=== PATIENT | male | born 1945 | race Caucasian/White ===

== ENCOUNTER 2023-05-15 05:42 | Emergency (ER) | payer OTHER ==
[~2023-05-15] VITALS: Ht 165.1 cm; Wt 72.6 kg
[2023-05-15 09:15] VITALS: BP 116/57
[2023-05-15] MEDS ORDERED: OXAYDO5 M1 PO (09:25)
== END 2023-05-15 09:40 | disposition home or self-care (01) ==
LOC: ER 05:42
DX: G89.18 Other acute postprocedural pain (principal); R10.2 Pelvic and perineal pain; N32.89 Other specified disorders of bladder; Z88.0 Allergy status to penicillin; Z87.891 Personal history of nicotine dependence; Z79.899 Other long term (current) drug therapy; Z79.82 Long term (current) use of aspirin; I25.2 Old myocardial infarction
CPT/HCPCS: 51798; 99284; A9270

== ENCOUNTER 2025-02-15 10:10 | Day surgery (SDC) | payer OTHER ==
[~2025-02-15] VITALS: Ht 165.1 cm; Wt 69.9 kg
[~2025-02-15 10:10] MED LIST: Balanced Salt Epinephrine Irrigation Solution 500 mL IR SCH; Lidocaine HCl/Pf 1% 5 ML VIAL XX SCH; Moxifloxacin HCL 0.5 MG/0.1 ML 0.4MLSYR RIGHTEYE SCH; OXAYDO5 M1 PO; PHENYLEPHRINE\\TROPICAMIDE\\TETRACAINE OPHTHALMIC DILATING SOLN RIGHTEYE PRN; Povidone-Iodine 450 DROP/30 ML Solution ONE; Povidone-Iodine 450 DROP/30 ML Solution RIGHTEYE SCH; Tetracaine HCl/Pf 0.5% Opth Soln 4 ml ONE; Triamcinolone Inj Susp 40 MG / ML 1ML Vial INJ SCH; Triamcinolone Inj Susp 40 MG / ML 1ML Vial ONE
[2025-02-15] MEDS ORDERED: NS 500 ML IV ONE (11:18)
[2025-02-15] MEDS ORDERED: LOSA50 PO (11:31)
[2025-02-15] MEDS ORDERED: LEVSOD25 PO (11:32)
[2025-02-15] MEDS ORDERED: TAMS.4ER (11:34)
[2025-02-15] MEDS ORDERED: METOPROLOL SUCC25 MG PO (11:34)
[2025-02-15] MEDS ORDERED: ZOCOR20 MG PO (11:36)
[2025-02-15] MEDS ORDERED: ELIQUIS2.5 MG PO (11:36)
[2025-02-15] MEDS ORDERED: EZET10 (11:37)
[2025-02-15] MEDS ORDERED: SITA50T2 PO (11:41)
[2025-02-15] MEDS ORDERED: SYNJARDY XR 251 EAC1 (11:42)
--- NOTE | 2025-02-15 11:48 | NUR ---
02/15/25 1148 Andreina Schumacher TETRACAINE: 1118 PLEGETT: 1120
[2025-02-15] MEDS ORDERED: Midazolam HCl 1MG / ML 2ML Vial ONE (12:09)
[2025-02-15] MEDS ORDERED: FentaNYL Citrate 50 MCG/ML 2 ML Injection ONE (12:09)
[2025-02-15 12:38] VITALS: BP 131/70
== END 2025-02-15 12:47 | disposition home or self-care (01) ==
LOC: ORSCSDS 10:10
PROVIDERS: Ophthalmology
PROC: 08RJ3JZ Replacement of Right Lens with Synthetic Substitute, Percutaneous Approach (ICD-10-PCS; principal; 2025-02-15 12:30)
DX: E11.36 Type 2 diabetes mellitus with diabetic cataract (principal); H25.813 Combined forms of age-related cataract, bilateral; H52.201 Unspecified astigmatism, right eye; H40.023 Open angle with borderline findings, high risk, bilateral; I25.2 Old myocardial infarction; I10 Essential (primary) hypertension; G47.33 Obstructive sleep apnea (adult) (pediatric); Z87.891 Personal history of nicotine dependence; Z79.899 Other long term (current) drug therapy
CPT/HCPCS: 82947; J2250; J3010; J3301; V2632

== ENCOUNTER 2025-02-22 12:19 | Day surgery (SDC) | payer OTHER ==
[~2025-02-22] VITALS: Ht 165.1 cm; Wt 69.8 kg
[~2025-02-22 12:19] MED LIST changes: +ELIQUIS2.5 MG PO; +EZET10; +LEVSOD25 PO; +LOSA50 PO; +Lidocaine HCl/Pf 1% 5 ML VIAL ONE; +METOPROLOL SUCC25 MG PO; +Midazolam HCl 1MG / ML 2ML Vial ONE; +Moxifloxacin HCL 0.5 MG/0.1 ML 0.4MLSYR LEFTEYE SCH; -Moxifloxacin HCL 0.5 MG/0.1 ML 0.4MLSYR RIGHTEYE SCH; +NS 500 ML IV ONE; +PHENYLEPHRINE\\TROPICAMIDE\\TETRACAINE OPHTHALMIC DILATING SOLN LEFTEYE PRN; -PHENYLEPHRINE\\TROPICAMIDE\\TETRACAINE OPHTHALMIC DILATING SOLN RIGHTEYE PRN; +Povidone-Iodine 450 DROP/30 ML Solution LEFTEYE SCH; -Povidone-Iodine 450 DROP/30 ML Solution RIGHTEYE SCH; +SITA50T2 PO; +SYNJARDY XR 251 EAC1; +TAMS.4ER; -Tetracaine HCl/Pf 0.5% Opth Soln 4 ml ONE; +ZOCOR20 MG PO
[2025-02-22] MEDS ORDERED: Tetracaine HCl/Pf 0.5% Opth Soln 4 ml ONE (12:43)
[2025-02-22] MEDS ORDERED: [UNRECOGNIZED DRUG - OTHER] (13:55)
[2025-02-22] MEDS ORDERED: NS 500 ML IV ONE (13:58)
[2025-02-22 14:46] VITALS: BP 118/60
== END 2025-02-22 14:45 | disposition home or self-care (01) ==
LOC: ORSCSDS 12:19
PROVIDERS: Ophthalmology
PROC: 08RK3JZ Replacement of Left Lens with Synthetic Substitute, Percutaneous Approach (ICD-10-PCS; principal; 2025-02-22 14:30)
DX: E11.36 Type 2 diabetes mellitus with diabetic cataract (principal); H25.812 Combined forms of age-related cataract, left eye; H52.202 Unspecified astigmatism, left eye; Z96.1 Presence of intraocular lens; Z95.0 Presence of cardiac pacemaker; H40.023 Open angle with borderline findings, high risk, bilateral; I10 Essential (primary) hypertension; I25.2 Old myocardial infarction; E78.00 Pure hypercholesterolemia, unspecified; Z87.891 Personal history of nicotine dependence; Z79.899 Other long term (current) drug therapy
CPT/HCPCS: 82947; J2003; J2250; J3301; J7040; V2632